=== PATIENT | male | born 1980 | race Hispanic/Latino ===

== ENCOUNTER 2022-06-26 12:46 | Emergency (ER) | payer OTHER ==
[~2022-06-26] VITALS: Ht 167.6 cm; Wt 83.9 kg
[2022-06-26 13:59] LABS: BASOPHILS % 0.3 % (0.0-1.0); EOSINOPHILS # (AUTO) 0.1 (0.0-0.4); EOSINOPHILS % 1.2 % (0.0-6.0); HEMOGLOBIN 15.5 g/dL (14.0-18.0); LYMPHOCYTES # (AUTO) 1.6 (1.0-3.2); LYMPHOCYTES % 25.7 % (18.0-39.1); MEAN CORPUSCULAR HEMOGLOBIN 29.6 pg (28-32); MEAN CORPUSCULAR HGB CONC 34.4 g/dL (31-35); MEAN CORPUSCULAR VOLUME 85.9 fL (81-99); MONOCYTES # (AUTO) 0.3 (0.2-0.8); MONOCYTES % 5.6 % (4.4-11.3); NEUTROPHILS # (AUTO) 4.1 (2.1-6.9); PLATELET COUNT 250 x10e3/uL (140-360); RED BLOOD COUNT 5.24 x10e6/uL (4.3-5.7); RED CELL DISTRIBUTION WIDTH 12.1 % (11.7-14.4)
[2022-06-26 14:13] LABS: ALANINE AMINOTRANSFERASE 33 IU/L (0-55); ALBUMIN 4.6 g/dL (3.5-5.0); ALBUMIN/GLOBULIN RATIO 1.6 (0.8-2.0); ALKALINE PHOSPHATASE 67 IU/L (40-150); BLOOD UREA NITROGEN 13 mg/dL (7-26); BUN/CREATININE RATIO 10 (6-25); CALCIUM 9.5 mg/dL (8.4-10.2); CARBON DIOXIDE 25 mmol/L (22-29); CHLORIDE 105 mmol/L (98-107); CREATINE KINASE 558 IU/L (30-200); CREATININE, SERUM 1.24 mg/dL (0.72-1.25); GLUCOSE 110 mg/dL (74-118); SODIUM 142 mmol/L (136-145)
[2022-06-26] MEDS ORDERED: SODIUM CHLORIDE 0.9% 1000ML 1,000 ML IV STA ×2 (14:24)
[2022-06-26 16:57] LABS: CREATINE KINASE 374 IU/L (30-200)
[2022-06-26 18:28] VITALS: BP 129/83
== END 2022-06-26 17:48 | disposition home or self-care (01) ==
LOC: ER 13:30
DX: R07.89 Other chest pain (principal); M62.82 Rhabdomyolysis
CPT/HCPCS: 36415; 71045; 80053; 82550; 82553; 84484; 85025; 85379; 93005; 99284; J7030

== ENCOUNTER 2024-09-10 18:38 | Emergency (ER) | payer OTHER ==
[~2024-09-10] VITALS: Ht 167.6 cm; Wt 83.9 kg
[2024-09-10 18:46] VITALS: TEMP 98.4
[2024-09-10 19:09] LABS: BASOPHILS % 0.3 % (0.0-1.0); EOSINOPHILS # (AUTO) 0.1 (0.0-0.4); EOSINOPHILS % 2.1 % (0.0-6.0); HEMATOCRIT 44.4 % (38.2-49.6); HEMOGLOBIN 14.9 g/dL (14.0-18.0); LYMPHOCYTES # (AUTO) 2.3 (1.0-3.2); MEAN CORPUSCULAR HEMOGLOBIN 29.4 pg (28-32); MEAN CORPUSCULAR HGB CONC 33.6 g/dL (31-35); MEAN CORPUSCULAR VOLUME 87.7 fL (81-99); MONOCYTES # (AUTO) 0.5 (0.2-0.8); MONOCYTES % 7.6 % (4.4-11.3); NEUTROPHILS # (AUTO) 3.7 (2.1-6.9); NEUTROPHILS % 55.7 % (38.7-80.0); PLATELET COUNT 239 x10e3/uL (140-360); RED BLOOD COUNT 5.06 x10e6/uL (4.3-5.7); RED CELL DISTRIBUTION WIDTH 12.4 % (11.7-14.4); WHITE BLOOD COUNT 6.68 x10e3/uL (4.8-10.8)
[2024-09-10 19:26] LABS: ALBUMIN/GLOBULIN RATIO 1.4 (0.8-2.0); ANION GAP 13.8 mmol/L (8-16); BILIRUBIN,TOTAL 0.3 mg/dL (0.2-1.2); CALCIUM 9.4 mg/dL (8.4-10.2); CREATININE, SERUM 1.47 mg/dL (0.72-1.25); POTASSIUM 3.8 mmol/L (3.5-5.1); TOTAL PROTEIN 6.8 g/dL (6.5-8.1)
[2024-09-10] MEDS: SODIUM CHLORIDE 0.9% 1000ML 1,000 ML IV STA (19:29)
[2024-09-10 19:32] LABS: TROPONIN I 0.001 ng/mL (0-0.300)
[2024-09-10 20:00] VITALS: PULSE 61; RESP 16
[2024-09-10 20:12] VITALS: BP 132/82; O2SAT 100
== END 2024-09-10 20:10 | disposition home or self-care (01) ==
LOC: ER 18:48
DX: R20.2 Paresthesia of skin (principal); F17.210 Nicotine dependence, cigarettes, uncomplicated
CPT/HCPCS: 36415; 70450; 71045; 80053; 82550; 83690; 83880; 84484; 85025; 93005; 99284; J7030